=== PATIENT | male | born 1980 | race Caucasian/White ===

== ENCOUNTER 2016-06-01 07:01 | Emergency (ER) | payer OTHER ==
[2016-06-01] MEDS ORDERED: Sodium Chloride 0.9% 10 ML Syringe FLUSH PRN (07:27)
--- NOTE | 2016-06-01 07:35 | EDM.PDOC ---
ED HPI NEURO - General Chief Complaint: Neurological Problem Stated Complaint: DIZZINESS/NUMBNESS Time Seen by Provider: 06/01/16 07:17 Source of Information: Reports: Patient History Limitations: Reports: No limitations - History of Present Illness INITIAL COMMENTS - FREE TEXT/NARRATIVE: The patient presents with left sided numbness and tingling. He says it feels like he had a panic attack but he never had one before. He has an "empty" feeling in his chest. He has no shortness of breath. He has no fever, chills, cough, congestion or runny nose. He does not feel weak in his arm or leg. He has a history of a stroke when he was 24. He had complete loss of strength and sensation to the left side of his body. That did resolve within an hour. He had CT scans and an MRI done. They found a small area of infarct. They also found a small flap in his heart with a transesophageal echo. Nothing else was done. This numbness and tingling comes and goes over the past 3 to 4 days. He has no headache or vision changes. He has slightly elevated blood pressure at times but he has never been treated. He has no nausea or vomiting. Timing/Duration: Reports: Day(s): (4) Location (Neuro Complaint): Reports: upper extremity, left, lower extremity, left Quality (Neuro Complaint): Reports: numbness, tingling Severity: moderate Improves with: Reports: None Worsens with: Reports: None Associated Symptoms: Denies: headaches, shortness of breath, syncope, chest pain , fever/chills, diaphoresis, malaise, loss of appetite, nausea/vomiting - Related Data Allergies/ADRs: Allergies Allergy/AdvReac Type Severity Reaction Status Date / Time Penicillins Allergy Vomiting Verified 06/01/16 07:15 Home Meds: Home Meds . [No Known Home Meds] 06/01/16 [History] Past Medical History Neurological History: Reports: CVA - Past Surgical History GI Surgical History: Reports: Hernia, abdominal Musculoskeletal Surgical History: Reports: Arthroscopic knee Social & Family History - Tobacco Use Smoking Status *Q: Never Smoker - Caffeine Use Caffeine Use: Reports: Coffee - Recreational Drug Use Recreational Drug Use: No ED ROS GENERAL - Review of Systems Review Of Systems: See Below Constitutional: Reports: no symptoms HEENT: Reports: No symptoms Respiratory: Reports: no symptoms Cardiovascular: Reports: No symptoms Endocrine: Reports: no symptoms GI/Abdominal: Reports: No symptoms : Reports: no symptoms Musculoskeletal: Reports: no symptoms Skin: Reports: no symptoms Neurological: Reports: numbness (Left arm and leg), tingling (Left arm and leg) . Denies: headache, weakness ED EXAM, NEURO - Physical Exam Exam: See Below Exam Limited By: No limitations General Appearance: alert, no apparent distress Ears: normal external exam Nose: normal inspection Head Exam: atraumatic, normocephalic Neck: normal inspection Respiratory/Chest: no respiratory distress, lungs clear, normal breath sounds Cardiovascular: regular rate, rhythm, no edema, no murmur GI/Abdominal: soft, non tender, no organomegaly, no mass Neurological: alert, normal mood/affect, CN II-XII intact, no motor/sensory deficits, oriented x 3 Course - Vital Signs Last Recorded V/S: Last Vital Signs Temp 97.6 F 06/01/16 07:12 Pulse 93 06/01/16 08:46 Resp 26 H 06/01/16 08:46 BP 133/92 H 06/01/16 08:46 Pulse Ox 96 06/01/16 08:46 - Orders/Labs/Meds Orders: Active Orders 24 hr Category Date Time Status Cardiac Monitoring [RC] . DIRECTED Care 06/01/16 07:27 Active EKG Documentation Completion [RC] STAT Care 06/01/16 07:28 Active Peripheral IV Care [RC] . DIRECTED Care 06/01/16 07:28 Active Sodium Chloride 0.9% [Saline Flush] Med 06/01/16 07:27 Active 10 ml FLUSH ASDIRECTED PRN Peripheral IV Insertion Adult [OM.PC] Stat Oth 06/01/16 07:27 Ordered Medication Orders Sodium Chloride (Saline Flush) 10 ml FLUSH ASDIRECTED PRN PRN Reason: Keep Vein Open Last Admin: 06/01/16 07:40 Dose: 10 ml Labs: Laboratory Tests 06/01/16 06/01/16 Range/Units 07:35 07:35 WBC 5.97 (4.23-9.07) K/mm3 RBC 5.34 (4.63-6.08) M/mm3 Hgb 15.6 (13.7-17.5) gm/L Hct 45.6 (40.1-51.0) % MCV 85.4 (79.0-92.2) fl MCH 29.2 (25.7-32.2) pg MCHC 34.2 (32.2-35.5) g/dl RDW Std Deviation 40.9 (35.1-43.9) fL Plt Count 231 (163-337) K/mm3 MPV 9.9 (9.4-12.3) fl Neut % (Auto) 73.3 H (34.0-67.9) % Lymph % (Auto) 17.4 L (21.8-53.1) % Hartley % (Auto) 6.9 (5.3-12.2) % Eos % (Auto) 1.8 (0.8-7.0) Baso % (Auto) 0.3 (0.1-1.2) % Neut # 4.37 (1.78-5.38) K/mm3 Lymph # 1.04 L (1.32-3.57) K/mm3 Hartley # 0.41 (0.30-0.82) K/mm3 Eos # 0.11 (0.04-0.54) K/mm3 Baso # 0.02 (0.01-0.08) K/mm3 Sodium 138 (136-145) mEq/L Potassium 4.2 (3.5-5.1) mEq/L Chloride 104 (98-107) mEq/L Carbon Dioxide 21 (21-32) mEq/L Anion Gap 17.2 H (5-15) BUN 23 H (7-18) mg/dL Creatinine 1.1 (0.7-1.3) mg/dL Est Cr Clr Drug Dosing 107.94 mL/min Estimated GFR (MDRD) > 60 (>60) mL/min BUN/Creatinine Ratio 20.9 H (14-18) Glucose 142 H (74-106) mg/dL Calcium 9.0 (8.5-10.1) mg/dL Total Bilirubin 0.9 (0.2-1.0) mg/dL AST 22 (15-37) U/L ALT 51 (16-63) U/L Alkaline Phosphatase 80 (46-116) U/L Troponin I < 0.017 (0.00-0.056) ng/mL Total Protein 8.0 (6.4-8.2) g/dl Albumin 4.2 (3.4-5.0) g/dl Globulin 3.8 gm/dL Albumin/Globulin Ratio 1.1 (1-2) TSH 3rd Generation 1.715 (0.358-3.74) uIU/mL Meds: Medications Generic Name Dose Route Start Last Admin Trade Name Frechilo PRN Reason Stop Dose Admin Sodium Chloride 10 ml 06/01/16 07:27 06/01/16 07:40 Saline Flush FLUSH 10 ml ASDIRECTED PRN Administration Keep Vein Open Discontinued Medications Generic Name Dose Route Start Last Admin Trade Name Freq PRN Reason Stop Dose Admin Aspirin 324 mg 06/01/16 08:41 06/01/16 08:45 Aspirin PO 06/01/16 08:42 324 mg ONETIME ONE Administration - Re-Assessments/Exams Free Text/Narrative Re-Assessment/Exam: 06/01/16 07:39 I ordered an IV saline lock and I will get a CT of his head, labs and EKG. 06/01/16 08:28 His EKG shows a NSR with no acute changes. His CBC and CMP look good. His troponin is negative. His CT shows multiple low-density findings on the right side. Small low-density abnormality is seen within the right cerebellar hemisphere. Low-density finding noted within the right occipital lobe. Low- density findings are also seen within the posterior right frontal lobe and within the right parietal lobe. These all appear old. Differential includes old embolic infarcts as well as old trauma. I am worried he may have a PFO and he is having TIA. He may have a large stroke soon. I called [facility] in [place] and talked with Dr Gipson the neurologist and Dr Gardner the hospitalist and they accepted the patient. They wanted me to give him some aspirin. I have called [facility] [employer] flight team and they will flu the patient by plane. Departure - Departure Time of Disposition: 08:55 Disposition: DC/Tfer to Acute Hospital 02 Condition: fair Clinical Impression: TIA (transient ischemic attack) Qualifiers: Transient cerebral ischemia type: unspecified Qualified Code(s): G45.9 - Transient cerebral ischemic attack, unspecified Forms: ED Department Discharge - My Orders Last 24 Hours: My Active Orders 06/01/16 07:27 Cardiac Monitoring [RC] . DIRECTED Sodium Chloride 0.9% [Saline Flush] 10 ml FLUSH ASDIRECTED PRN Peripheral IV Insertion Adult [OM.PC] Stat 06/01/16 07:28 EKG Documentation Completion [RC] STAT Peripheral IV Care [RC] . DIRECTED - Assessment/Plan Last 24 Hours: My Active Orders 06/01/16 07:27 Cardiac Monitoring [RC] . DIRECTED Sodium Chloride 0.9% [Saline Flush] 10 ml FLUSH ASDIRECTED PRN Peripheral IV Insertion Adult [OM.PC] Stat 06/01/16 07:28 EKG Documentation Completion [RC] STAT Peripheral IV Care [RC] . DIRECTED
--- NOTE | 2016-06-01 07:59 | CT ---
Head CT Technique: Multiple axial sections through the brain were obtained. Intravenous contrast was not utilized. Comparison: No previous intracranial imaging is available. Findings: Small low-density abnormality is seen within the right cerebellar hemisphere. Low-density finding noted within the right occipital lobe. Low-density findings are also seen within the posterior right frontal lobe and within the right parietal lobe. These all appear to be old. No left-sided abnormalities are seen. Ventricles along with basal cisterns and sulci over the convexities are within normal limits for the patient's age. No evidence of intracranial hemorrhage. No midline shift is seen. Bone window settings were reviewed which shows the visualized sinuses to appear clear. No acute calvarial abnormality is seen. Impression: 1. Multiple low-density findings on the right side as described above. Differential includes old embolic infarcts as well as old trauma. 2. Nothing acute is definitely seen. MRI could be considered to further evaluate if clinically needed. Diagnostic code #3
[2016-06-01] MEDS ORDERED: Aspirin 81 MG Tab.Chew PO ONE (08:41)
[2016-06-01 08:47] VITALS: BP 133/92
== END 2016-06-01 09:30 ==
LOC: JD.ED 07:01
DX: G45.9 Transient cerebral ischemic attack, unspecified (principal); Z88.0 Allergy status to penicillin; Z86.73 Personal history of transient ischemic attack (TIA), and cerebral infarction without residual deficits
CPT/HCPCS: 36415; 70450; 80053; 84443; 84484; 85025; 93005; 99285; A9270; J7050

== ENCOUNTER 2021-10-18 20:59 | Emergency (ER) | payer BC, OTHER ==
[2021-10-18 21:45] VITALS: BP 172/126; PULSE 123
[2021-10-18] MEDS ORDERED: Cefdinir 300 MG Cap PO ONE (21:57)
== END 2021-10-18 22:28 | disposition home or self-care (01) ==
LOC: JD.ED 20:59
DX: L03.031 Cellulitis of right toe (principal); F17.210 Nicotine dependence, cigarettes, uncomplicated; Z88.0 Allergy status to penicillin; Z86.16 Personal history of COVID-19
CPT/HCPCS: 99283; A9270

== ENCOUNTER 2022-03-28 14:48 | Emergency (ER) | payer BC ==
[2022-03-28] MEDS: Sodium Chloride 0.9% 10 ML Syringe FLUSH PRN ×2 (15:30→17:35)
[2022-03-28] MEDS ORDERED: Iopamidol 612 MG/ML 100 ML Bottle IVPUSH ONE (17:14)
[2022-03-28] MEDS ORDERED: Sodium Chloride 0.9% 10 ML Syringe FLUSH PRN (17:14)
[2022-03-28 18:41] VITALS: BP 155/107; PULSE 76
== END 2022-03-28 18:41 | disposition home or self-care (01) ==
LOC: JD.ED 14:48
DX: R03.0 Elevated blood-pressure reading, without diagnosis of hypertension (principal); Z88.0 Allergy status to penicillin
CPT/HCPCS: 36415; 71045; 71260; 80053; 83735; 83880; 84443; 84484; 85025; 85379; 85610; 85730; 93005; 99285; J3490; Q9967

== ENCOUNTER 2022-08-01 21:13 | Emergency (ER) | payer BC ==
[2022-08-01 21:37] VITALS: BP 145/89; PULSE 96
[2022-08-01] MEDS ORDERED: Sodium Chloride 0.9% 1,000 ML IV STA (21:43)
[2022-08-01] MEDS ORDERED: HYDROmorphone 0.5 MG/0.5 ML Syringe IVPUSH ONE (21:43)
[2022-08-01] MEDS ORDERED: Sodium Chloride 0.9% 10 ML Syringe FLUSH PRN (21:43)
[2022-08-01] MEDS ORDERED: Ondansetron 4 MG/2 ML SDV IVPUSH ONE (21:43)
[2022-08-01 22:22] LABS: BASOPHILS ABSOLUTE AUTO 0.04 K/mm3 (0.01-0.08); BASOPHILS PERCENT AUTO 0.5 % (0.1-1.2); EOSINOPHILS ABSOLUTE AUTO 0.13 K/mm3 (0.04-0.54); EOSINOPHILS PERCENT AUTO 1.7 (0.8-7.0); HEMOGLOBIN 12.7 gm/dl (13.7-17.5); IMMATURE GRAN ABSOLUTE AUTO 0.02 K/mm3 (0.00-0.10); IMMATURE GRAN PERCENT AUTO 0.3 % (<=1.0); LYMPHOCYTES ABSOLUTE AUTO 1.59 K/mm3 (1.32-3.57); LYMPHOCYTES PERCENT AUTO 20.5 % (21.8-53.1); MEAN CORPUSCULAR HEMOGLOBIN 28.7 pg (25.7-32.2); MEAN CORPUSCULAR HGB CONC 33.4 g/dl (32.2-35.5); MEAN PLATELET VOLUME 9.3 fl (9.4-12.3); MONOCYTES ABSOLUTE AUTO 0.64 K/mm3 (0.30-0.82); MONOCYTES PERCENT AUTO 8.3 % (5.3-12.2); NEUTROPHILS ABSOLUTE AUTO 5.32 K/mm3 (1.78-5.38); NEUTROPHILS PERCENT AUTO 68.7 % (34.0-67.9); PLATELET COUNT,PLT 259 K/mm3 (163-337); RED BLOOD CELL COUNT 4.42 M/mm3 (4.63-6.08); WHITE BLOOD CELL COUNT,WBC 7.74 K/mm3 (4.23-9.07)
[2022-08-01 22:25] LABS: APPEARANCE,URINE CLEAR (Clear); BILIRUBIN,URINE NEGATIVE (Negative); COLOR,URINE YELLOW (Yellow); GLUCOSE,URINE NEGATIVE (Negative); KETONES,URINE TRACE (Negative); LEUKOCYTE ESTERASE,URINE NEGATIVE (Negative); NITRITE,URINE NEGATIVE (Negative); OCCULT BLOOD,URINE 2+ (Negative); PROTEIN,URINE NEGATIVE (Negative); UROBILINOGEN,URINE 0.2 (0.2-1.0)
[2022-08-01 22:34] LABS: BACTERIA,URINE FEW /hpf (FEW); MUCUS,URINE FEW /hpf (FEW); RBC,URINE 30-40 /hpf (0-5); SQUAMOUS EPITHELIAL CELLS,UR 0-5 /hpf (0-5); WBC,URINE 0-5 /hpf (0-5)
[2022-08-01 22:43] LABS: A/G RATIO 1.1 (1-2); ALBUMIN 3.9 g/dl (3.4-5.0); ANION GAP 16.7 (5-15); BILIRUBIN TOTAL 0.6 mg/dL (0.2-1.0); BUN/CREATININE RATIO 13.9 (14-18); C-REACTIVE PROTEIN 0.6 mg/dL (<1.0); CALCIUM 8.6 mg/dL (8.5-10.1); CREATININE 1.8 mg/dL (0.7-1.3); EST CRCL DRUG DOSING (CG) 62.16 mL/min; POTASSIUM,K 3.7 mEq/L (3.5-5.1); PROTEIN TOTAL,TP 7.5 g/dl (6.4-8.2)
== END 2022-08-01 22:55 | disposition home or self-care (01) ==
LOC: JD.ED 21:13
DX: N20.0 Calculus of kidney (principal); Z88.0 Allergy status to penicillin; Z86.73 Personal history of transient ischemic attack (TIA), and cerebral infarction without residual deficits
CPT/HCPCS: 36415; 74176; 74176-26; 80053; 81001; 85025; 86140; 99284

== ENCOUNTER 2023-01-09 08:00 | Emergency (ER) | payer BC ==
[2023-01-09] MEDS ORDERED: amLODIPine 10 MG Tab PO ONE (08:45)
[2023-01-09 08:50] LABS: BASOPHILS PERCENT AUTO 0.4 % (0.0-1.0); EOSINOPHILS ABSOLUTE AUTO 0.1 K/mm3 (0.0-0.4); EOSINOPHILS PERCENT AUTO 1.7 % (0.0-6.0); HEMATOCRIT 40.5 % (42.0-52.0); HEMOGLOBIN 13.7 gm/dl (14.0-18.0); IMMATURE GRAN ABSOLUTE AUTO 0.03 K/mm3 (0.00-0.05); IMMATURE GRAN PERCENT AUTO 0.6 % (0.0-0.4); LYMPHOCYTES PERCENT AUTO 19.8 % (24.0-44.0); MEAN CORPUSCULAR HGB CONC 33.8 g/dl (32.0-36.0); MEAN CORPUSCULAR VOLUME 85.6 fl (83.0-99.0); MEAN PLATELET VOLUME 9.6 fl (9.4-12.4); MONOCYTES ABSOLUTE AUTO 0.3 K/mm3 (0.0-0.8); MONOCYTES PERCENT AUTO 5.6 % (0.0-8.0); NEUTROPHILS ABSOLUTE AUTO 3.7 K/mm3 (1.8-7.7); NEUTROPHILS PERCENT AUTO 71.9 % (41.0-71.0); PLATELET COUNT,PLT 228 K/mm3 (150-400); RED BLOOD CELL COUNT 4.73 M/mm3 (4.52-5.90); WHITE BLOOD CELL COUNT,WBC 5.15 K/mm3 (3.9-11.3)
[2023-01-09 09:30] LABS: HEMOGLOBIN A1C 6.3 %
[2023-01-09 09:38] LABS: A/G RATIO 1.1 (1-2); ANION GAP 12.4 (5-15); BILIRUBIN TOTAL 0.5 mg/dL (0.2-1.0); C-REACTIVE PROTEIN 0.2 mg/dL (<1.0); EST CRCL DRUG DOSING (CG) 111.88 mL/min; MAGNESIUM 1.7 mg/dL (1.8-2.4); POTASSIUM,K 4.4 mEq/L (3.5-5.1); PROTEIN TOTAL,TP 7.8 g/dl (6.4-8.2)
[2023-01-09] MEDS ORDERED: hydrALAZINE 20 MG/ML SDV IVPUSH ONE (10:03)
[2023-01-09 10:47] VITALS: BP 138/97; PULSE 76
== END 2023-01-09 10:35 | disposition home or self-care (01) ==
LOC: JD.ED 08:00
DX: R07.89 Other chest pain (principal); I10 Essential (primary) hypertension; Z88.0 Allergy status to penicillin
CPT/HCPCS: 36415; 71045; 80053; 80061; 83036; 83735; 83880; 84484; 85025; 86140; 93005; 96374; 99285; A9270; J0360; 93010; 99284

== ENCOUNTER 2023-01-25 12:15 | Emergency (ER) | payer BC ==
[2023-01-25] MEDS ORDERED: Alum Hydrox/Mag Hydrox/Simeth 30 ML, Lidocaine 2% 15 ML PO ONE ×2 (12:37)
[2023-01-25 12:59] LABS: BASOPHILS PERCENT AUTO 0.6 % (0.0-1.0); EOSINOPHILS ABSOLUTE AUTO 0.1 K/mm3 (0.0-0.4); HEMATOCRIT 41.3 % (42.0-52.0); HEMOGLOBIN 14.1 gm/dl (14.0-18.0); IMMATURE GRAN ABSOLUTE AUTO 0.02 K/mm3 (0.00-0.05); IMMATURE GRAN PERCENT AUTO 0.3 % (0.0-0.4); LYMPHOCYTES ABSOLUTE AUTO 1.5 K/mm3 (1.0-4.8); LYMPHOCYTES PERCENT AUTO 22.2 % (24.0-44.0); MEAN CORPUSCULAR HEMOGLOBIN 29.6 pg (28.0-32.0); MEAN CORPUSCULAR HGB CONC 34.1 g/dl (32.0-36.0); MEAN CORPUSCULAR VOLUME 86.8 fl (83.0-99.0); MEAN PLATELET VOLUME 9.2 fl (9.4-12.4); MONOCYTES ABSOLUTE AUTO 0.4 K/mm3 (0.0-0.8); MONOCYTES PERCENT AUTO 5.9 % (0.0-8.0); NEUTROPHILS ABSOLUTE AUTO 4.8 K/mm3 (1.8-7.7); PLATELET COUNT,PLT 247 K/mm3 (150-400); RED BLOOD CELL COUNT 4.76 M/mm3 (4.52-5.90); WHITE BLOOD CELL COUNT,WBC 6.79 K/mm3 (3.9-11.3)
[2023-01-25 13:41] LABS: A/G RATIO 1.1 (1-2); ALBUMIN 4.2 g/dl (3.4-5.0); ANION GAP 15.7 (5-15); BILIRUBIN TOTAL 0.9 mg/dL (0.2-1.0); BUN/CREATININE RATIO 10.9 (14-18); CALCIUM 9.3 mg/dL (8.5-10.1); CREATININE 1.1 mg/dL (0.7-1.3); EST CRCL DRUG DOSING (CG) 101.71 mL/min; POTASSIUM,K 3.7 mEq/L (3.5-5.1); PROTEIN TOTAL,TP 7.9 g/dl (6.4-8.2)
[2023-01-25] MEDS ORDERED: LORazepam 1 MG Tab PO ONE (14:21)
[2023-01-25 15:54] VITALS: BP 148/95; PULSE 95
== END 2023-01-25 15:15 | disposition home or self-care (01) ==
LOC: JD.ED 12:15
DX: R07.2 Precordial pain (principal); I10 Essential (primary) hypertension; E11.9 Type 2 diabetes mellitus without complications; Z86.73 Personal history of transient ischemic attack (TIA), and cerebral infarction without residual deficits; Z79.899 Other long term (current) drug therapy; Z88.0 Allergy status to penicillin
CPT/HCPCS: 36415; 71046; 80053; 83880; 84484; 85025; 85379; 99285; A9270; 93005; 93010; 99283